=== PATIENT | male | born 1980 | race Two or more races ===

== ENCOUNTER 2018-10-03 15:43 | Outpatient (CLI) | payer OTHER ==
--- NOTE | 2018-10-05 16:30 | MRI Report ---
Reason: PAIN IN LEFT FOOT, LEFT ANKLE AND JOINTS OF LEFT F Procedure Date: 10/03/2018 Accession Number: [id number] / [id number] Procedure: MRI - Ankle LT W/O CPT Code: FULL RESULT: EXAM: LEFT ANKLE/HINDFOOT MRI WITHOUT CONTRAST. EXAM DATE: 10/03/2018 04:10 PM. CLINICAL HISTORY: Pain in left foot, left ankle and joints of left foot. COMPARISON: None. TECHNIQUE: Multiplanar, multisequence T1-weighted and fluid-sensitive sequences of the ankle/hindfoot without contrast. Other: None. FINDINGS: Bones: 0.7 cm dorsal spur from the navicular at the second navicular cuneiform joint with mild marrow edema and adjacent soft tissue edema. This corresponds to the region of the skin marker. Remaining bony structures demonstrate normal morphology and marrow signal. No fracture. Articular Cartilage: Cartilage thinning in the navicular cuneiform joints. Ligaments: The anterior and posterior tibiofibular, anterior and posterior talofibular, and calcaneofibular ligaments are intact. The deep and superficial deltoid and spring ligaments are intact. Anterior Tendons: The tibialis anterior, extensor hallucis longus, and extensor digitorum longus tendons are unremarkable. Medial Tendons: The tibialis posterior, flexor digitorum longus, and flexor hallucis longus tendons are unremarkable. Lateral Tendons: The peroneus brevis and longus are unremarkable. Achilles Tendon: The Achilles tendon is unremarkable. Musculature: No edema or fatty atrophy. Other: No effusions. The contents of the sinus tarsi and tarsal tunnel are unremarkable. No plantar fasciitis. The subcutaneous tissues are unremarkable. IMPRESSION: 1. Prominent dorsal spur at the second navicular cuneiform joint, either degenerative or posttraumatic. Associated edema in the adjacent soft tissues. 2. Remaining bony structures are unremarkable. Tendons and ligaments appear intact. [facility] MUSCULOSKELET[facility] RADIOLOGY SECTION
== END 2018-10-03 15:44 | disposition home or self-care (01) ==
LOC: DI 15:43
PROVIDERS: ATTEND Orthopaedic Surgery
DX: M77.52 Other enthesopathy of left foot and ankle (principal); M79.672 Pain in left foot; M25.572 Pain in left ankle and joints of left foot; M71.379 Other bursal cyst, unspecified ankle and foot

== ENCOUNTER 2019-05-20 08:20 | Outpatient (CLI) | payer OTHER ==
--- NOTE | 2019-05-20 14:53 | XRAY Report ---
Reason: PAIN IN LEFT SHOULDER, PAIN IN LEFT KNEE Procedure Date: 05/20/2019 Accession Number: [id number] / [id number] Procedure: FL - Arthrogram Needle Placement CPT Code: FULL RESULT: EXAM: LEFT SHOULDER ARTHROGRAPHIC INJECTION WITH FLUOROSCOPIC GUIDANCE EXAM DATE: 05/20/2019 09:44 AM. CLINICAL HISTORY: PAIN IN LEFT SHOULDER, PAIN IN LEFT KNEE. COMPARISON: None. TECHNIQUE: The risks, benefits, and alternatives of the procedure were discussed with the patient. All questions were answered. Written and verbal consent were obtained. The left glenohumeral joint was marked under fluoroscopy and prepped and draped in a sterile manner. Local anesthesia was performed with 1% lidocaine. A 22-gauge needle was then inserted into the glenohumeral joint. 10 mL dilute gadolinium solution was then injected. The needle was removed without immediate complication. Other: None. Fluoroscopy Time: 1 minute 33 seconds. Number of Images: 11. FINDINGS: Bones and joints: No fracture or subluxation. Injection: Fluoroscopic images demonstrate needle placement and contrast in the glenohumeral joint. No contrast extravasation outside of the glenohumeral joint. IMPRESSION: Successful fluoroscopically guided arthrographic injection of the left shoulder. [facility]
--- NOTE | 2019-05-21 10:52 | MRI Report ---
Reason: PAIN IN LEFT SHOULDER, PAIN IN LEFT KNEE Procedure Date: 05/20/2019 Accession Number: [id number] / [id number] Procedure: MRI - Arthrogram Shoulder LT CPT Code: FULL RESULT: EXAM: LEFT SHOULDER MRI ARTHROGRAM WITH CONTRAST EXAM DATE: 05/20/2019 10:00 AM. CLINICAL HISTORY: Pain in left shoulder, pain in left knee. COMPARISON: None. TECHNIQUE: Multiplanar, multisequence T1-weighted and fluid-sensitive sequences of the shoulder after an arthrographic injection of dilute gadolinium, dictated under a separate exam. Other: None. FINDINGS: Rotator cuff: Small amount of fraying along the articular aspect of the infraspinatus insertion. No evidence of a high-grade or full-thickness rotator cuff tear. No rotator cuff muscle atrophy or fatty replacement. Long head biceps tendon: Intact demonstrating normal course, signal and morphology. Labrum: Intact. Small contrast filling tear at the base of the superior labrum extending posteriorly from the biceps anchor. Otherwise intact. Bones and articular surfaces: No significant articular cartilage defects are seen. Acromioclavicular joint: Normal alignment. Type II acromion. IMPRESSION: 1. Small tear at the base of the superior labrum posterior to the biceps anchor. 2. Small amount of fraying along the articular aspect of the infraspinatus insertion. No evidence of a high-grade or full-thickness rotator cuff tear. [facility]
--- NOTE | 2019-05-21 10:57 | MRI Report ---
Reason: PAIN IN LEFT SHOULDER, PAIN IN LEFT KNEE Procedure Date: 05/20/2019 Accession Number: [id number] / [id number] Procedure: MRI - Knee LT W/O CPT Code: FULL RESULT: EXAM: LEFT KNEE MRI WITHOUT CONTRAST EXAM DATE: 05/20/2019 10:40 AM. CLINICAL HISTORY: Pain in left shoulder, pain in left knee. COMPARISON: None. TECHNIQUE: Multiplanar, multisequence T1-weighted and fluid-sensitive sequences of the knee without contrast. Other: None. FINDINGS: Cruciate ligaments: The anterior and posterior cruciate ligament appear intact. Medial meniscus: Intact. No tear is identified. Lateral meniscus: Intact. No tear is identified. Collateral ligaments: The medial and fibular collateral ligaments appear intact. Bones and articular surfaces: Moderate cartilage thinning and fissuring in the central and medial aspect of the trochlea. Slight degree of subchondral edema at the medial trochlea. No additional significant articular cartilage abnormality. Extensor mechanism: The patellar tendon and quadriceps insertion appear intact. IMPRESSION: 1. 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 [facility]
== END 2019-05-20 08:21 | disposition home or self-care (01) ==
LOC: DI 08:20
DX: S43.492A Other sprain of left shoulder joint, initial encounter (principal); M94.262 Chondromalacia, left knee
CPT/HCPCS: 23350; 73222; 73721; 77002; Q9961